=== PATIENT | female | born 1970 | race Caucasian/White ===

== ENCOUNTER 2020-05-01 21:53 | Inpatient (IN) | payer OTHER ==
[~2020-05-01] VITALS: Ht 157.5 cm; Wt 112.0 kg
[2020-05-01] MEDS ORDERED: SYNTHROID50 MCG PO (23:10)
[2020-05-01] MEDS ORDERED: VITAMIN D3125 MC1 PO (23:11)
[2020-05-01] MEDS ORDERED: GUMMI BEAR MUL1 EACH PO (23:11)
[2020-05-02 03:10] LABS: HEMOGLOBIN 12.3 gm/dl (12.3-15.3); RED BLOOD COUNT 3.92 M/UL (4.00-5.10); WHITE BLOOD COUNT 19.6 K/UL (4.5-11.0)
[2020-05-03 04:09] LABS: HEMOGLOBIN 11.3 gm/dl (12.3-15.3); RED BLOOD COUNT 3.58 M/UL (4.00-5.10)
[2020-05-03 04:10] LABS: WHITE BLOOD COUNT 13.3 K/UL (4.5-11.0)
[2020-05-03] MEDS ORDERED: TYLENOL 500 MG500 MG PO (09:45)
[2020-05-03] MEDS ORDERED: FLAGYL500 MG PO (09:45)
[2020-05-03] MEDS ORDERED: DOXYCYCLINE HY100 M2 PO (09:45)
[2020-05-03] MEDS ORDERED: IBUPROFEN600 MG PO (09:45)
== END 2020-05-03 11:48 | disposition home or self-care (01) | DRG 758 ==
LOC: M/S 21:53
PROVIDERS: ADMIT Obstetrics & Gynecology
DX: N73.9 Female pelvic inflammatory disease, unspecified (principal); Z68.42 Body mass index [BMI] 45.0-49.9, adult; E66.9 Obesity, unspecified; Z20.822 Contact with and (suspected) exposure to COVID-19; E03.9 Hypothyroidism, unspecified; Z79.890 Hormone replacement therapy
CPT/HCPCS: 36415; 85025; J0694; U0003